=== PATIENT | female | born 1975 | race Caucasian/White ===

== ENCOUNTER → 2019-11-10 16:24 | Outpatient (BNVA) | payer OTHER, SELFPAY | PROVIDERS: Family Provider Family Medicine; PCP Family Medicine; Visit Provider Nurse Practitioner Family | DX: N39.0 Urinary tract infection, site not specified (principal); R68.89 Other general symptoms and signs | CPT/HCPCS: 81003; 87804 ==

== ENCOUNTER 2022-04-20 14:14 | Outpatient (CLI) | payer OTHER, SELFPAY ==
--- NOTE | 2022-04-20 14:19 | MM_ITS ---
WS: [id number] BILATERAL 3D TOMOSYNTHESIS DIGITAL SCREENING MAMMOGRAPHY WITH CAD CLINICAL INFORMATION: SCREENING HISTORY: Screening mammogram. No current complaints. COMPARISON: 019 TECHNIQUE: Bilateral CC and MLO views. FINDINGS: Scattered fibroglandular densities bilaterally. Stable 11 mm RIGHT axillary tail lymph node. No suspi cious focal mass, asymmetry, calcifications, or architectural distortion. No evidence of malignancy. MM/[place] [id number] IMPRESSION: BI-RADS: 2-Benign FOLLOW UP: 1 Year Follow-up Recommend return to annual screening mammography.
== END 2022-04-20 14:15 | disposition home or self-care (01) ==
LOC: RAD 14:14
PROVIDERS: Family Provider Family Medicine; PCP Family Medicine; Visit Provider Family Medicine
DX: Z12.31 Encounter for screening mammogram for malignant neoplasm of breast (principal)
CPT/HCPCS: 77063; 77067

== ENCOUNTER 2022-08-08 09:09 | Outpatient (CLI) | payer OTHER, SELFPAY ==
--- NOTE | 2022-08-08 09:30 | MR_ITS ---
WS: [id number] MRI HEAD WITH CONTRAST TECHNIQUE: Sagittal T1, T2 axial, T2 axial FLAIR, axial susceptibility weighted imaging, axial diffus ion weighted images, and coronal T2 images were obtained. Pre and post-T1 axial and post T1 coronal i mages. ADC and FSPGR images. CLINICAL INFORMATION: H91.92 - Unspecified hearing loss, left ear COMPARISON: None. FINDINGS: No evidence of restricted diffusion to suggest acute ischemia. Ventricular system and basal cisterns are patent. A few small foci of T2 hyperintensity in the frontal white matter nonspecific but can be seen with migraine headaches. No significant parenchymal volume loss. Normal posterior fossa. Normal vascular flow voids at the skull base. Normal posterior nasopharynx. Normal parapharyngeal fat. Para nasal sinuses and mastoid air cells well aerated. Normal visualized orbits. No hemosiderin on the susceptibly weighted images. Proximal 7th and 8th cranial nerves are normal in appearance. Normal trigeminal nerve root entry zones. No evidence of enhancing IAC or CP angle mass. Normal optic chiasm and pituitary infundibulum. Temporal lobes and hippocampal formations are normal in appearance. A few prominent lymph nodes partially visualized in the upper cervical chain nonspecif ic but likely reactive. Normal cavernous sinuses and Meckel's cave. MR/MR head wo/w con [id number] IMPRESSION: 1. No evidence of restricted diffusion to suggest acute ischemia. 2. Proximal 7th and 8th cranial nerves are normal in appearance. No evidence o f enhancing IAC or CP angle mass. Normal trigeminal nerve root entry zones. 3. Mastoid air cells are well aerated. 4. No abnormal intracranial enhancement. 5. 2 or 3 small foci of T2 hyperintensity in the frontal subcortical white mat ter nonspecific in a patient this age but can be seen with migraine headaches. No significant parenchymal volume loss. 6. No hemosiderin on susceptibly weighted images.
[2022-08-08] MEDS: gadobenate dimeglumine 20 mL vial IV (11:08)
== END 2022-08-08 09:10 | disposition home or self-care (01) ==
PROVIDERS: PCP Family Medicine; Visit Provider Family Medicine
DX: H91.92 Unspecified hearing loss, left ear (principal); M79.89 Other specified soft tissue disorders; Z85.850 Personal history of malignant neoplasm of thyroid
CPT/HCPCS: 70553; A9577

== ENCOUNTER → 2023-07-19 15:36 | Outpatient (BNVA) | payer OTHER, SELFPAY | PROVIDERS: PCP Family Medicine; Visit Provider Nurse Practitioner Family | DX: R30.0 Dysuria (principal) | CPT/HCPCS: 81000 ==

== ENCOUNTER → 2023-08-02 10:55 | Outpatient (BNVA) | payer OTHER, SELFPAY | PROVIDERS: PCP Family Medicine; Visit Provider Nurse Practitioner Family | DX: M25.551 Pain in right hip (principal); M25.552 Pain in left hip; M54.50 Low back pain, unspecified | CPT/HCPCS: 72100; 73502 ==

== ENCOUNTER → 2023-09-19 07:39 | Outpatient (BNVA) | payer OTHER, SELFPAY | PROVIDERS: PCP Family Medicine; Referring Provider Family Medicine; Visit Provider Student in an Organized Health Care Education/Training Program | DX: M87.051 Idiopathic aseptic necrosis of right femur; M70.61 Trochanteric bursitis, right hip; D16.9 Benign neoplasm of bone and articular cartilage, unspecified | CPT/HCPCS: 20610; 99204; J3301 ==

== ENCOUNTER 2023-10-14 23:33 | Emergency (ER) | payer OTHER, SELFPAY ==
[2023-10-14 23:44] VITALS: BP 207/127; PULSE 77; RESP 17; O2SAT 97; BMI 32.7
--- NOTE | 2023-10-14 23:56 | ECG_ITS ---
[facility] Test Date: 2023-10-15 Pat Name: Cierra Pedraza Department: Room: Gender: Female Business Attorney: : 1975 Requested By: Aung Burns Order Number: [id number] Vivek MD: Reggie Maya M.D. Measurements Intervals [place] Rate: 68 P: 30 MN: 138 QRS: 35 QRSD: 96 T: 16 QT: 399 QTc: 427 Interpretive Statements SINUS RHYTHM LOW QRS VOLTAGE IN PRECORDIAL LEADS [QRS DEFLECTION < 1.0 mV IN CHEST LEADS] POSSIBLE INFERIOR MYOCARDIAL INFARCTION , PROBABLY OLD [30 ms Q WAVE IN II/aVF] Compared to ECG 04/14/2017 22:17:05 Myocardial infarct finding now present Electronically Signed On 10-15-2023 21:23:02 BILINGUAL OPERATOR by Reggie Maya M.D. [id number]
--- NOTE | 2023-10-15 01:00 | XRR_ITS ---
PROCEDURE INFORMATION: Exam: XR Chest Exam date and time: 10/15/2023 1:07 AM Age: 48 years old Clinical indication: Shortness of breath; Patient HX: SOB with hypertension TECHNIQUE: Imaging protocol: Radiologic exam of the chest. Views: 1 view. COMPARISON: No relevant prior studies available. FINDINGS: Lungs: Unremarkable. No consolidation. Pleural spaces: Unremarkable. No pleural effusion. No pneumothorax. Heart/Mediastinum: Unremarkable. No cardiomegaly. Bones/joints: Unremarkable. XR/XR chest 1V portable [id number] IMPRESSION: No acute findings.
--- NOTE | 2023-10-15 01:00 | CTR_ITS ---
PROCEDURE INFORMATION: Exam: CT Head Without Contrast Exam date and time: 10/15/2023 1:31 AM Age: 48 years old Clinical indication: Pain; Headache; Patient HX: GRIGGS with hypertension and dizziness; Additional info: HTN, dizzy, headache TECHNIQUE: Imaging protocol: Computed tomography of the head without contrast. Radiation optimization: All CT scans at this facility use at least one of these dose optimization techniques: automated exposure control; mA and/or kV adjustment per patient size (includes targeted exams where dose is matched to clinical indication); or iterative reconstruction. COMPARISON: MR head wo/w con [id number] 08/08/2022 10:19 AM RADIATION DOSE METRICS: Total DLP (mGy-cm): 957.54 FINDINGS: Brain: Normal. No hemorrhage. Unremarkable white matter. No mass effect. Cerebral ventricles: No ventriculomegaly. Paranasal sinuses: Visualized sinuses are unremarkable. No fluid levels. Mastoid air cells: Visualized mastoid air cells are well aerated. Bones/joints: Unremarkable. No acute fracture. Soft tissues: Unremarkable. CT/CT head wo con* [id number] IMPRESSION: No acute intracranial abnormality.
[2023-10-15 01:01] VITALS: BP 170/101; PULSE 72; RESP 18; O2SAT 96
[2023-10-15] MEDS: amlodipine 10 mg Tablet PO (01:11)
[2023-10-15] MEDS: enalaprilat 2.5 mg/2 mL SDV 1.25 MG IVP (01:11)
[2023-10-15] MEDS: labetalol 5 mg/mL SDV 20mL 10 MG IVP (01:11)
[2023-10-15 01:20] LABS: Basophils # 0.1 10^3/uL (0.0-0.1); Basophils % 0.8 %; Eosinophils # 0.2 10^3/uL (0.0-0.8); Eosinophils % 2.8 %; Hematocrit 43.4 % (36-47); Lymphocytes % 41.2 %; Mean Corpuscular HGB Conc 31.6 g/dL (30-55); Mean Corpuscular Hemoglobin 29.1 pg (27-33); Mean Corpuscular Volume 92.3 fl (85-98); Mean Platelet Volume 9.1 fL (7.4-10.4); Monocytes # 0.4 10^3/uL (0.2-0.9); Monocytes % 5.5 %; Neutrophils # 3.59 10^3/uL (1.8-7.7); Neutrophils % 49.6 %; Nucleated Red Blood Cells % 0 %; Platelet Count 319 10^3/cmm (157-399); Red Cell Distribution Width 13.9 % (12.1-15.1); White Blood Count 7.25 10^3/uL (3.29-11.43)
[2023-10-15 01:41] LABS: Alanine Aminotransferase 23 U/L (0-33); Albumin Level 4.2 g/dL (3.5-5.2); Alkaline Phosphatase 87 U/L (35-105); Anion Gap 12.8 (5-19); Aspartate Amino Transferase 22 U/L (0-32); Blood Urea Nitrogen 12 mg/dL (6-20); Calcium 9.2 mg/dL (8.5-10.5); Carbon Dioxide 27 mmol/L (22-29); Chloride 102 mmol/L (98-107); Globulin 3.4 g/dL (1.3-4.6); Glomerular Filtration Rate 66.5 mL/min (90-130); Glucose 96 mg/dL (65-115); NT Pro B Type Natriuretic Pept < 36 pg/mL (0-125); Osmolality Calculated 286 mOsm/kg (285-295); Potassium 3.8 mmol/L (3.5-5.1); Sodium 138 mmol/L (136-145); Thyroid Stimulating Hormone 1.51 uIU/mL (0.27-4.20); Total Bilirubin 0.2 mg/dL (0.15-1.2); Total Protein 7.6 g/dL (6.6-8.7)
[2023-10-15 01:45] VITALS: BP 174/108; PULSE 69; RESP 19; O2SAT 97
[2023-10-15 01:48] LABS: Add Urine Microscopic? NO; Charge for UA Resulting for Rev
[2023-10-15 01:50] LABS: Bilirubin Urine Neg (Negative); Blood Urine Neg (Negative); Glucose Urine UA Norm (Normal); Ketones Urine Negative (Negative); Leukocyte Esterase Urine Negative (Negative); Nitrate Urine Negative (Negative); Protein Urine Neg (Negative); Urine Appearance Clear (CLEAR); Urine Color Yellow (Yellow); Urobilinogen Urine Norm (Negative); pH Urine 7 (5-7)
[2023-10-15] MEDS: labetalol 5 mg/mL SDV 20mL 20 MG IVP (02:07)
[2023-10-15 02:21] VITALS: BP 145/96; PULSE 76; RESP 19; O2SAT 97
[2023-10-15 02:41] VITALS: BP 157/94; PULSE 73; RESP 18; O2SAT 95
--- NOTE | 2023-10-15 16:31 | ED_ITS ---
HPI - Headache 2 General: Chief Complaint: Headache Stated Complaint: high bp Time Seen by Provider: 10/15/23 00:01 History of Present Illness: 48 year old female whom is not treated c hronically for hypertension. She presents with a headache, and some dizziness with numbness in her fingers and lips and a tingling sensation. Because of this, she checked her blood pressure, and it was high. It remained high at home despite checking it several times, which concerned her given her symptoms. She denies significant chest discomfort. she says she's mildly short of breath. No fever. No language problems. No significant confusion. Associated symptoms: Deny chest pain, confusion, fever(s), nausea, rash or vomiting Review of Systems 2 Const: Denies: fever(s), chills or body aches Eyes: Denies: change in vision Card: Denies: chest pain or palpitations Resp: Reports: dyspnea; Denies: productive cough, non-productive cough or wheezing GI: Denies: abdominal pain, nausea, vomiting, diarrhea or hematochezia : Denies: difficulty voiding Skin/Breast: Denies: rash Neuro: Reports: headache(s) and dizziness; Denies: weakness in extremities or confusion PFSH ED 2 PFSH: Medical History Hx of thyroid cancer Anxiety Family History Grandmother Cancer kidney Chronic kidney disease (CKD) Diabetes Lung disease Grandfather Cancer Brother Hypertension Other Stroke Denies family history of Suicide Social History Smoking and tobacco/nicotine status: never used tobacco/nicotine Alcohol intake: never Substance/Drug Use: never Adopted: No Lives independently: Yes Household members: spouse and children Housing: House Marital status: Number of children: 3 Highest education level completed: Bachelor's Degree Education level details: teacher service: No Current occupational status: employed Current occupation: teach Pets and animals: Yes Current gender identity: Female Physical Exam 2 Const: COMMON NORMALS: no acute distress GENERAL APPEARANCE: cooperative; not ill appearing and not frail appearing HENMT: COMMON NORMALS: normocephalic, atraumatic and Normal external nose present HEAD & SCALP: normocephalic and atraumatic FACE & SINUS: normal facial exam and face symmetric NOSE: Normal external nose present Eye: COMMON NORMALS: Equal, round and reactive pupils present and EOMs intact bilaterally PUPIL: Yes Equal, round and reactive pupils present Neck/C-Spine: GENERAL: Yes trachea midline Chest: CHEST: Yes Symmetrical chest wall rise Resp: COMMON NORMALS: normal respiratory effort, No retractions, No use of accessory muscles and clear to auscultation bilaterally AUSCULTATION: clear to auscultation bilaterally Cardio: COMMON NORMALS: regular rate and regular rhythm RATE: regular rate RHYTHM: regular rhythm GI: COMMON NORMALS: Normal to inspection, nondistended, normoactive bowel sounds present Extremity: COMMON NORMALS: no pedal edema Neuro: MAMI COMA SCALE: document GCS findings [place] coma scale eye opening: Spontaneous Mami coma scale verbal response: Orientated [place] coma scale motor response: Obey commands Mami coma scale total score: 15 S ENSORY EXAM: Yes extremities (intact) Psych: COMMON NORMALS: speech normal SPEECH: Yes normal speech Skin: COMMON NORMALS: no rashes or lesions noted GENERAL SKIN EXAM: no rashes or lesions noted Course 2 Vital Signs: Vital signs: Vital Signs Pulse Rate 73 10/15/23 02:41 Respiratory Rate 18 10/15/23 02:41 Blood Pressure 157/94 10/15/23 02:41 Pulse Oximetry 95 10/15/23 02:41 Oxygen Delivery Me thod Room Air 10/15/23 02:21 MDM - Headache Medical Decision Making Blood pressure has been quite high, over 200 systolic. She is given IV medication for this as well as oral amlodipine. Blood pressure significantly improved. Her headache has improved. She feels tired now, but otherwise is not symptomatic. Head CT is negative. Chest X-ray is negative. serum workup is non remarkable. Urinalysis reveals no proteinuria. she nii be allowed to discharge. She is to take amlodipine for hypertension at home if on testing she remains high. close outpatient follow up. Return for concerns. Lab Data 10/15/23 00:30 10/15/23 00:30 Radiology Impressions Chest X-Ray 10/15/23 01:00 IMPRESSION: No acute findings. Head CT 10/15/23 01:00 IMPRESSION: No acute intracranial abnormality. Laboratory Results WBC 7.25 10^3/uL (3.29-11.43) 10/15/23 00:30 RBC 4.70 10^6/uL (3.85-5.65) 10/15/23 00:30 Hgb 13.70 g/dL (11.27-16.99) 10/15/23 00:30 Hct 43.4 % (36-47) 10/15/23 00:30 MCV 92.3 fl (85-98) 10/15/23 00: MCH 29.1 pg (27-33) 10/15/23 00: MCHC 31.6 g/dL (30-55) 10/15/23 00:30 RDW 13.9 % (12.1-15.1) 10/15/23 00:30 Plt Count 319 10^3/cmm (157-399) 10/15/23 00:30 MPV 9.1 fL (7.4-10.4) 10/15/23 00:30 Neut % (Auto) 49.6 % 10/15/23 00:30 Lymph % (Auto) 41.2 % 10/15/23 00:30 [place] % (Auto) 5.5 % 10/15/23 00:30 Eos % (Auto) 2.8 % 10/15/23 00:30 Baso % (Auto) 0.8 % 10/15/23 00:30 Neut # (Auto) 3.59 10^3/uL (1.8-7.7) 10/15/23 00:30 Lymph # (Auto) 3.0 10^3/uL (0.8-4.8) 10/15/23 00:30 [place] # (Auto) 0.4 10^3/uL (0.2-0.9) 10/15/23 00:30 Eos # (Auto) 0.2 10^3/uL (0.0-0.8) 10/15/23 00:30 Baso # (Auto) 0.1 10^3/uL (0.0-0.1) 10/15/23 00:30 Nucleated RBC % (auto) 0 % 10/15/23 00:30 Nucleated RBCs # 0.0 /100WBC 10/15/23 00:30 Sodium 138 mmol/L (136-145) 10/15/23 00:30 Potassium 3.8 mmol/L (3.5-5.1) 10/15/23 00:30 Chloride 102 mmol/L (98-107) 10/15/23 00:30 Carbon Dioxide 27 mmol/L (22-29) 10/15/23 00:30 Anion Gap 12.8 (5-19) 10/15/23 00:30 BUN 12 mg/dL (6-20) 10/15/23 00:30 Creatinine 0.9 mg/dL (0.5-0.9) 10/15/23 00:30 GFR Calculation 66.5 mL/min (90-130) L 10/15/23 00:30 Glucose 96 mg/dL (65-115) 10/15/23 00:30 Calculated Osmolality 286 mOsm/kg (285-295) 10/15/23 00:30 Calcium 9.2 mg/dL (8.5-10.5) 10/15/23 00:30 Total Bilirubin 0.2 mg/dL (0.15-1.2) 10/15/23 00: AST 22 U/L (0-32) 10/15/23 00:30 ALT 23 U/L (0-33) 10/15/23 00:30 Alkaline Phosphatase 87 U/L (35-105) 10/15/23 00:30 NT-Pro-B Natriuret Pep < 36 pg/mL (0-125) 10/15/23 00:30 Total Protein 7.6 g/dL (6.6-8.7) 10/15/23 00:30 Albumin 4.2 g/dL (3.5-5.2) 10/15/23 00:30 Globulin 3.4 g/dL (1.3-4.6) 10/15/23 00:30 TSH 1.51 uIU/mL (0.27-4.20) 10/15/23 00:30 Urine Color Yellow (Yellow) 10/15/23 01:44 Urine Appearance Clear (CLEAR) 10/15/23 01:44 Urine pH 7 (5-7) 10/15/23 01:44 Ur Specific Robert 1.010 (1.005-1.030) 10/15/23 01:44 Urine Protein Neg (Negative) 10/15/23 01:44 Urine Glucose (UA) Norm (Normal) 10/15/23 01:44 Urine Ketones Negative (Negative) 10/15/23 01:44 Urine Blood Neg (Negative) 10/15/23 01:44 Urine Nitrate Negative (Negative) 10/15/23 01:44 Urine Bilirubin Neg (Negative) 10/15/23 01:44 Urine Urobilinogen Norm mg/dL (Negative) 10/15/23 01:44 Ur Leukocyte Esterase Negative (Negative) 10/15/23 01:44 All radiology interpretation(s) finalized by discharge Discharge Plan Discharge Patient Disposition: Home Clinical Impression: Hypertensive urgency Condition: Stable Prescriptions: New amlodipine 10 mg tablet 10 mg PO DAILY Qty: 30 0RF No Action levothyroxine 125 mcg capsule 125 mcg PO DAILY gabapentin 100 mg capsule 100 mg PO BID Qty: 60 0RF cyclobenzaprine 10 mg tablet 10 mg PO BID PRN (Reason: muscle spasm) Qty: 14 0RF prednisone 20 mg tablet 20 mg PO BID Qty: 10 0RF bupropion HCl 75 mg tablet See Rx Instructions .ROUTE .COMPLEX Qty: 60 5RF Dose Instruction: TAKE 1 TABLET BY MOUTH TWICE DAILY FOR MOOD Rx Instructions: TAKE 1/2 TABLET BY MOUTH TWICE DAILY FOR MOOD alprazolam [Xanax] 0.5 mg tablet 0.5 mg PO TID PRN (Reason: anxiety) 30 Days Qty: 90 5RF escitalopram oxalate 20 mg tablet See Rx Instructions .ROUTE .COMPLEX Qty: 30 5RF Dose Instruction: TAKE ONE TABLET BY MOUTH DAILY Rx Instructions: TAKE ONE TABLET BY MOUTH DAILY Discharge Orders: Discharge ED (Routine); Ordered 10/15/23 Ordered By: Aung Key Referrals: Isidro Masterson DO [Primary Care Provider] - 1-3 days Patient Instructions: Hypertension (ED) Activity Restrictions/Additional Instructions: Check your blood pressure twice daily. If your blood pressure remains greater than 150/90, take the medication prescribed. Return for chest discomfort, worsening headache, mental status changes, problems with language, speech, or weakness, any other concerning symptoms. See your doctor this week. Coding Level of Care Code ED Vocational Teacher for Chaitanya Ramos
== END 2023-10-15 02:42 | disposition home or self-care (01) ==
PROVIDERS: Emergency Provider Emergency Medicine; PCP Family Medicine
DX: I16.0 Hypertensive urgency (principal); Z85.850 Personal history of malignant neoplasm of thyroid
CPT/HCPCS: 70450; 71045; 80053; 81003; 83880; 84443; 85025; 93005; 96374; 96375; 96376; 99285; J3490

== ENCOUNTER 2023-10-19 12:52 | Emergency (ER) | payer OTHER, SELFPAY ==
[2023-10-19 12:56] VITALS: BP 132/81; PULSE 123; RESP 18; O2SAT 100; BMI 33.3
--- NOTE | 2023-10-19 12:58 | ECG_ITS ---
Test Date: 2023-10-19 Pat Name: Cierra Pedraza Department: Room: Gender: Female Glass Vial Bending Conveyor Feeder: : 1975 Requested By: Yuko Lee Order Number: [id number] Vivek MD: Carlos Shaver M.D. Measurements Intervals [place] Rate: 120 P: 47 SD: 140 QRS: 6 QRSD: 85 T: 17 QT: 318 QTc: 450 Interpretive Statements SINUS TACHYCARDIA POSSIBLE ANTERIOR MYOCARDIAL INFARCTION , PROBABLY OLD [30 ms Q WAVE IN V3/V4, OR R < 0.2 mV IN V4] ABNORMAL RHYTHM ECG Compared to ECG 10/15/2023 00:31:17 Sinus rhythm no longer present Myocardial infarct finding still present Electronically Signed On 10-19-2023 16:02:28 APPLICATION DEVELOPER by Carlos Shaver M.D. [id number]
== END 2023-10-19 13:28 | disposition left against medical advice (07) ==
PROVIDERS: Emergency Provider Family Medicine; PCP Family Medicine
DX: Z53.21 Procedure and treatment not carried out due to patient leaving prior to being seen by health care provider (principal)
CPT/HCPCS: 93005

== ENCOUNTER → 2024-04-02 08:00 | Outpatient (BNVA) | payer BC, SELFPAY | PROVIDERS: PCP Family Medicine; Visit Provider Student in an Organized Health Care Education/Training Program | DX: M70.61 Trochanteric bursitis, right hip (principal) | CPT/HCPCS: 73522 ==

== ENCOUNTER → 2025-02-03 10:57 | Outpatient (BNVA) | payer BC, SELFPAY | PROVIDERS: PCP Family Medicine; Visit Provider Family Medicine | DX: E03.9 Hypothyroidism, unspecified (principal); M35.9 Systemic involvement of connective tissue, unspecified; M19.90 Unspecified osteoarthritis, unspecified site | CPT/HCPCS: 80053; 83036; 84443; 85025; 85651; 86140 ==